=== PATIENT | female | born 1970 | race Caucasian/White ===

== ENCOUNTER 2019-11-05 10:51 | Emergency (ER) | payer MEDICARE ==
[~2019-11-05] VITALS: Ht 165.1 cm; Wt 195.1 kg
[~2019-11-05 10:51] MED LIST: AMBIEN 5 MG TABL5 M1 PO; AZITHROMYCIN 2250 MG PO; CARAFATE 1 GM TA1 G1 PO; CO Q-10100 MG PO; DUONEB 2.5-0.5 M3 ML INH; ENOXAPARIN30 MG/0.3 SQ; FISH OIL 1,001000 M2 PO; GLUCOPHAGE500 MG; GLYBURIDE 2.52.5 MG PO; HYDROXYZINE HCL25 M2 GT; KEFLEX500 MG; KEFLEX500 MG PO; KLOR-CON 1010 MEQ PO; LASIX 40 MG TAB40 M2 PO; LEVAQUIN 500 M500 M2 PO; LEVOTHYROXINE0.05 MG PO; MAGNESIUM250 M1 PO; MEDROLDOSEPACK PO; MOBIC15 MG PO; MULTI FOR HER1 EACH PO; MULTIVITAMINS1 EAC7 PO; NORCO 5-325 TA1 EACH PO; ONDANSETRON HCL4 M2 PO; ONE-A-DAY WOMENS PO; PHENERGAN VC-C120 ML PO; PREDNISONE 10 M10 MG PO; PREDNISONE50 MG PO; PROAIR HFA8.5 GM INH; SIMVASTATIN20 MG PO; SINGULAIR 10 MG10 M1 PO; TOPAMAX100 MG PO; TRAMADOL 50 MG50 MG PO; TUMS PO; VICODIN ES TAB1 EACH; VITAMIN B COMP1 EACH PO; VITAMIN D35000 UNI1 PO; WELLBUTRIN SR150 MG PO; WELLBUTRIN XL150 M1 PO; ZESTRIL5 MG PO; ZOCOR40 MG PO; ZOFRAN ODT4 MG PO; ZOFRAN4 MG PO; ZOLOFT 50 MG TA50 MG PO; ZOLOFT100 MG PO; [UNRECOGNIZED DRUG - OTHER]; [UNRECOGNIZED DRUG - OTHER] PO; [UNRECOGNIZED DRUG - OTHER] PO
[2019-11-05 11:55] LABS: HEMATOCRIT 39.9 % (37.0-47.0); HEMOGLOBIN 12.9 gm/dL (12.0-15.0); MCH 27.1 pg (26.0-34.0); MCHC 32.3 g/dL (28.0-37.0); MCV 84.1 fL (80.0-100.0); MPV 8.4 fl. (7.2-11.1); NUCLEATED RBCS 0 /100WBC; PLATELET COUNT* 280 thou/uL (150-400); RBC 4.75 mil/uL (4.20-5.00); RDW-CV 15.6 % (10.5-14.5); WBC 13.5 thou/uL (4.0-11.0)
[2019-11-05 12:03] LABS: POTASSIUM 4.5 mmol/L (3.5-5.1)
[2019-11-05 12:08] LABS: ALBUMIN 3.7 g/dL (3.4-5.0); TOTAL BILIRUBIN 0.4 mg/dL (<0.1-1.0); TOTAL PROTEIN 7.8 g/dL (6.4-8.2)
[2019-11-05 12:27] LABS: ABSOLUTE BASOPHILS 0.1 thou/uL (0.0-0.2); ABSOLUTE EOSINOPHILS 0.1 thou/uL (0.0-0.7); ABSOLUTE LYMPHOCYTES 1.4 thou/uL (0.8-5.3); ABSOLUTE MONOCYTES 0.4 thou/uL (0.0-1.2); ABSOLUTE NEUTROPHILS 11.5 thou/uL (1.6-8.1)
[2019-11-05 12:28] LABS: PLATELET ESTIMATE ADEQUATE
[2019-11-05 12:31] LABS: URINE BILIRUBIN NEGATIVE (Negative); URINE BLOOD NEGATIVE (Negative); URINE CLARITY CLEAR; URINE COLOR YELLOW; URINE GLUCOSE-RANDOM 3+ (Negative); URINE KETONES NEGATIVE (Negative); URINE LEUKOCYTES-REFLEX NEGATIVE (Negative); URINE NITRITE-REFLEX NEGATIVE (Negative); URINE PROTEIN NEGATIVE (Negative); URINE UROBILINOGEN 0.2 E.U./dl (0.2-1.0)
[2019-11-05] MEDS ORDERED: ZETIA10 MG PO (13:18)
[2019-11-05] MEDS ORDERED: FENOFIBRATE150 MG PO (13:19)
[2019-11-05] MEDS ORDERED: ACTOS15 MG PO (13:19)
[2019-11-05] MEDS ORDERED: TRULICITY1.5 MG/0.5 SUBQ (13:20)
[2019-11-05] MEDS ORDERED: TOPROL XL25 MG PO (13:20)
[2019-11-05] MEDS ORDERED: DILTIAZEM ER180 M2 PO (13:36)
--- NOTE | 2019-11-05 14:41 | EKG ---
[place] [address] ELECTROCARDIOGRAM REPORT Name: ERIK SANCHEZ Room: [facility]#: [id number] Admission: 11/05/19 Attend Phys: Discharge: Date of : 66 Report #: [id number] THIS REPORT FOR: //name// [facility] ED Test Date: 2019-11-05 Test Time: 12:53:45 Pat Name: ERIK SANCHEZ Department: Room: Gender: F [employer]: : 1970 Requested By: Sherrell Purdy Order Number: [id number] MD: Ulisses Brush Measurements Intervals [place] Rate: 91 P: 92 AK: 156 QRS: 89 QRSD: 91 T: 30 QT: 373 QTc: 459 Interpretive Statements Sinus rhythm Low voltage, precordial leads Compared to ECG 06/28/2016 05:06:03 Low QRS voltage now present Electronically Signed On 11-05-2019 14:40:32 [employer] TECHNICAL OFFICER by Ulisses Brush [email or web address] <ELECTRONICALLY SIGNED> By: Ulisses Brush MD, [facility] 11/05/19 1440 [id number] [id number] Ulisses Brush MD, FACC /EPI
[2019-11-05] MEDS ORDERED: OMEPRAZOLE 20 M20 M1 PO (14:52)
[2019-11-05] MEDS ORDERED: FAMOTIDINE 20 M20 MG PO (14:52)
[2019-11-05 15:35] VITALS: BP 134/82
== END 2019-11-05 15:37 | disposition home or self-care (01) ==
LOC: M.ERS 10:51
PROVIDERS: Physician Assistant
DX: R10.13 Epigastric pain (principal); R10.31 Right lower quadrant pain; I10 Essential (primary) hypertension; E78.00 Pure hypercholesterolemia, unspecified; J45.909 Unspecified asthma, uncomplicated; G43.909 Migraine, unspecified, not intractable, without status migrainosus; E11.9 Type 2 diabetes mellitus without complications; E66.9 Obesity, unspecified; Z68.45 Body mass index [BMI] 70 or greater, adult; Z88.0 Allergy status to penicillin; Z88.2 Allergy status to sulfonamides; Z88.8 Allergy status to other drugs, medicaments and biological substances; Z90.49 Acquired absence of other specified parts of digestive tract

== ENCOUNTER 2020-04-19 01:34 | Inpatient (IN) | payer MEDICARE ==
[~2020-04-19] VITALS: Ht 165.1 cm; Wt 197.3 kg
[~2020-04-19 01:34] MED LIST changes: +ACTOS15 MG PO; +DILTIAZEM ER180 M2 PO; +FAMOTIDINE 20 M20 MG PO; +FENOFIBRATE150 MG PO; -LEVOTHYROXINE0.05 MG PO; +OMEPRAZOLE 20 M20 M1 PO; +SYNTHROID100 MC1 PO; +TOPROL XL25 MG PO; +TRULICITY1.5 MG/0.5 SUBQ; +ZETIA10 MG PO
[2020-04-19 01:51] VITALS: BP 158/84
[2020-04-19 02:13] LABS: URINE BLOOD NEGATIVE (Negative); URINE CLARITY CLEAR; URINE COLOR YELLOW; URINE GLUCOSE-RANDOM 3+ (Negative); URINE KETONES 1+ (Negative); URINE LEUKOCYTES-REFLEX NEGATIVE (Negative); URINE NITRITE-REFLEX NEGATIVE (Negative); URINE PROTEIN TRACE (Negative); URINE SPECIFIC GRAVITY 1.025 (1.005-1.030); URINE UROBILINOGEN 0.2 E.U./dl (0.2-1.0)
[2020-04-19 02:18] LABS: URINE BILIRUBIN 1+ (Negative)
[2020-04-19 02:22] LABS: ICTOTEST (BILI CONFIRMATORY) Negative (Negative)
[2020-04-19 03:05] LABS: ABSOLUTE LYMPHOCYTES 0.8 thou/uL (0.8-5.3); ABSOLUTE MONOCYTES 0.6 thou/uL (0.0-1.2); ABSOLUTE NEUTROPHILS 7.2 thou/uL (1.6-8.1); BASOPHILS 0.3 %; EOSINOPHILS 0.4 %; HEMATOCRIT 41.6 % (37.0-47.0); HEMOGLOBIN 13.9 gm/dL (12.0-15.0); LYMPHOCYTES 9.1 %; MCH 28.4 pg (26.0-34.0); MCHC 33.4 g/dL (28.0-37.0); MONOCYTES 6.7 %; MPV 8.8 fl. (7.2-11.1); NUCLEATED RBCS 0 /100WBC; PLATELET COUNT* 247 thou/uL (150-400); POLYS 83.5 %; RBC 4.89 mil/uL (4.20-5.00); RDW-CV 15.7 % (10.5-14.5); WBC 8.6 thou/uL (4.0-11.0)
[2020-04-19 03:19] LABS: CALCIUM 9.4 mg/dL (8.5-10.1); POTASSIUM 3.9 mmol/L (3.5-5.1)
[2020-04-19 03:23] LABS: ALBUMIN 3.5 g/dL (3.4-5.0); MAGNESIUM 1.7 mg/dL (1.8-2.4); TOTAL BILIRUBIN 0.7 mg/dL (<0.1-1.0); TOTAL PROTEIN 7.8 g/dL (6.4-8.2)
--- NOTE | 2020-04-19 06:31 | NUR ---
SPOKE WITH GARTH RE TRANSFER TO [facility] AND THE NEED TO CONTACT PTS FATHER TO GET INFO TO WHETHER FATHER WOULD GO WITH HER TO [facility] TO SIGN IN OR HAVE PAPERS FAXED HERE FOR HIM TO FILL OUT. I INFORMED GARTH THAT I LEFT A MESSAGE FOR FATHER TO CALL BACK. GARTH ASKED ME TO TRY TO CONTACT PTS MOM TO GET THIS INFO. EXPLAINED TO GARTH THAT THE MOTHERS CONTACT INFO IS NOT LISTED ON PTS FACESHEET. GARTH STATED THAT SHE HAD MOTHERS NUMBER BUT SHE DIDNT FEEL COMFORTABLE GIVING ME MOTHERS NUMBER AND THAT I SHOULD ASK PT FOR NUMBER AND PERMISSION TO CONTACT MOTHER. AFTER PHONE CALL I DISCUSSED WITH CHARGE JOSEE THE OPTION TO CALL MOM. D/T THE FACT THAT THE MOTHERS INFORMATION IS NOT LISTED ON FACESHEET WE HAD CONCERNS TO WHETHER WE COULD GET THIS ANSWER FROM MOM.WILL ATTEMPT TO CALL PTS DAD AGAIN.
[2020-04-19 08:29] VITALS: BP 147/79
[2020-04-19 08:45] VITALS: BP 147/74
[2020-04-19 18:15] VITALS: BP 151/93
--- NOTE | 2020-04-19 18:32 | NUR ---
PATIENT ADMITTED FROM ER THIS AM TO ROOM 315. ALERT AND ORIENTED X 4. NO COMPLAINTS OF PAIN OR NAUSEA THIS AM. IVF INFUSING. NPO EXCEPT MEDS, INSULIN GIVEN ORDERED. PATIENT DOWN FOR XRAY WITH GASTROGRAPHIN. PATIENT BACK UP TO FLOOR THIS AFTERNOON DURING TEST AND WAS BACK IN ROOM APPROX 20 MINUTES AND THEN STARTED HAVING LOTS OF LIQUID STOOLING. PATIENT DID HAVE DRY HEAVING, PATIENT GIVEN PRN ZOFRAN AND NO VOMITING NOTED. PATIENT DOWN FOR MORE XRAYS. PAGE OUT TO SURGERY TO UPDATE ON STOOL STATUS, SPOKE WITH DR. GOLDMAN. OK AFTER TEST TO HAVE ICE CHIPS SPARINGLY. ORDER RECEIVED FOR PATIENT TO HAVE HOME TRULICITY SHOT, SENT TO PHARMACY AT THIS TIME. WILL CONTINUE TO MONITOR.
[2020-04-19] MEDS ORDERED: AMARYL2 M1 PO (19:22)
[2020-04-19] MEDS ORDERED: FENOFIBRATE160 MG PO (19:27)
[2020-04-19] MEDS ORDERED: FLONASE 0.05%50 MCG NASAL (19:28)
[2020-04-19] MEDS ORDERED: FLEXERIL PO (19:28)
[2020-04-19] MEDS ORDERED: MELATONIN PO (19:29)
[2020-04-19 21:40] VITALS: BP 121/83
[2020-04-20 05:15] LABS: HEMATOCRIT 38.9 % (37.0-47.0); HEMOGLOBIN 12.8 gm/dL (12.0-15.0); MCH 28.1 pg (26.0-34.0); MCV 85.3 fL (80.0-100.0); MPV 8.9 fl. (7.2-11.1); RBC 4.56 mil/uL (4.20-5.00); RDW-CV 16.1 % (10.5-14.5); WBC 8.7 thou/uL (4.0-11.0)
[2020-04-20 05:40] LABS: ALBUMIN 3.6 g/dL (3.4-5.0); CALCIUM 9.2 mg/dL (8.5-10.1); CREATININE 1.1 mg/dL (0.6-1.3); MAGNESIUM 2.4 mg/dL (1.8-2.4); PHOSPHORUS* 2.8 mg/dL (2.5-4.9); POTASSIUM 3.2 mmol/L (3.5-5.1); TOTAL BILIRUBIN 0.4 mg/dL (<0.1-1.0)
--- NOTE | 2020-04-20 06:27 | NUR ---
PATIENT HAS SLEPT WELL THROUGHOUT MOST OF THE NIGHT. VSS ON RA. NO C/O PAIN. PATIENT IS UP AD-DALE TO THE BATHROOM BUT DOES NEED HELP WIPING AT TIMES. PATIENT HAS HAD A FEW EPISODES OF WATERY DIARRHEA DURING THE NIGHT AFTER SMALL BOWEL SERIES YESTERDAY. PATIENT REMAINS NPO AND HAS HAD ONLY VERY SMALL AMOUNT OF ICE CHIPS THAT WERE ALLOWED PER DR WELL VERY SMALL SIPS OF WATER WITH MEDICATIONS. ABDOMINAL X-RAY SCHEDULED THIS AM. NEW IV INSERTED IN LEFT FOREARM-NS @ 130ML/HR. PATIENT INSTRUCTED TO USE CALL LIGHT WHEN NEEDING ASSISTANCE. HOURLY ROUNDS MADE. WILL CONTINUE WITH PLAN OF CARE AND NURSING TO MONITOR.
[2020-04-20 07:58] VITALS: BP 116/45
[2020-04-20 08:33] VITALS: BP 116/45
--- NOTE | 2020-04-20 10:42 | EKG ---
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
--- NOTE | 2020-04-20 12:15 | NUR ---
Lives with mom. Sister also support system. Uses [employer] as part of ADLs. No other DME or assistance identified at this time. Will review new Rx for affordability with pt prior to dc.
--- NOTE | 2020-04-20 18:01 | NUR ---
DIET ADVANCED TO CLEAR LIQUID PER ORDER. MAY ADVANCE DIET TOLERATED PER ORDER. PT UP AD DALE. DENIES PAIN.
[2020-04-20 20:00] VITALS: BP 114/44; BP 131/91
--- NOTE | 2020-04-21 05:27 | NUR ---
PT SLEPT WELL OVERNIGHT, HAS DENIES PAIN OR NAUSEA. TOLERATING CLEARS WITHOUT DIFFICULTY. LFA IVF INFUSING PER PUMP. PO K GIVEN AND LABS WNL THIS MORNING. TO HAVE ABD XRAY THIS MORNING. HS ACCUCHECK 230, INSULIN GIVEN ORDERED. PT AOX4, ABLE TO USE CALL LITE AND MAKE NEEDS KNOWN. PT HOPEFUL FOR DIET ADVANCEMENT TODAY. SURGERY CONSULTING. UP AD DALE TO BR TO VOID WITHOUT DIFFICULTY.
[2020-04-21 06:34] LABS: ABSOLUTE EOSINOPHILS 0.3 thou/uL (0.0-0.7); ABSOLUTE LYMPHOCYTES 1.9 thou/uL (0.8-5.3); ABSOLUTE MONOCYTES 0.5 thou/uL (0.0-1.2); ABSOLUTE NEUTROPHILS 5.2 thou/uL (1.6-8.1); BASOPHILS 0.3 %; CALCIUM 7.8 mg/dL (8.5-10.1); CREATININE 0.9 mg/dL (0.6-1.3); EOSINOPHILS 3.7 %; HEMATOCRIT 32.9 % (37.0-47.0); LYMPHOCYTES 24.3 %; MCH 28.4 pg (26.0-34.0); MCHC 33.3 g/dL (28.0-37.0); MCV 85.3 fL (80.0-100.0); MONOCYTES 6.2 %; MPV 8.7 fl. (7.2-11.1); NUCLEATED RBCS 0 /100WBC; POLYS 65.5 %; POTASSIUM 3.9 mmol/L (3.5-5.1); RBC 3.86 mil/uL (4.20-5.00); RDW-CV 15.5 % (10.5-14.5); WBC 7.9 thou/uL (4.0-11.0)
[2020-04-21 06:36] LABS: PLATELET COUNT* 228 thou/uL (150-400)
[2020-04-21 08:10] VITALS: BP 140/73
[2020-04-21 09:05] VITALS: BP 140/73
--- NOTE | 2020-04-21 19:03 | NUR ---
PT A&OX4 VSS. PT UP AD DALE, GAIT STEADY. PT ENCOURAGED TO AMBULATE IN GLASER PER DR MIRAMONTES. IV TO LFA PATENT, SALINE LOCKED. FLUIDS DC'D DIRECTED. PT WENT TO RAD THIS AM FOR KUB/SINGLE VIEW CHEST. NO C/O NAUSEA/VOMITING THIS SHIFT. PT DIET ADVANCED TO FULL LIQUIDS. PT TOLERATES WELL. LAST REPORTED BM YESTERDAY. PT RESTING IN RECLINER WITH CALL LIGHT IN REACH AT THIS TIME. WILL CONTINUE TO MONITOR.
[2020-04-21 20:00] VITALS: BP 147/63
[2020-04-22 05:24] LABS: HEMATOCRIT 33.5 % (37.0-47.0); HEMOGLOBIN 11.3 gm/dL (12.0-15.0); MCH 28.6 pg (26.0-34.0); MCHC 33.7 g/dL (28.0-37.0); MCV 84.8 fL (80.0-100.0); MPV 8.3 fl. (7.2-11.1); RBC 3.94 mil/uL (4.20-5.00); RDW-CV 15.6 % (10.5-14.5); WBC 7.5 thou/uL (4.0-11.0)
[2020-04-22 05:31] LABS: CALCIUM 8.3 mg/dL (8.5-10.1); CREATININE 0.8 mg/dL (0.6-1.3); POTASSIUM 3.4 mmol/L (3.5-5.1)
--- NOTE | 2020-04-22 06:31 | NUR ---
PT SLEPT FAIRLY WELL OVERNIGHT, AMBULATING IN HALLS AND ROOM. HAS DENIED PAIN OR N/V, TOLERATING FULL LIQUID DIET. LAC SL. AOX4. CURRENTLY SHELTERING IN GLASER IN WHEELCHAIR WITH MASK PER CARLA WARNING PROTOCOLS. FREQUENT OBSERVATION. HOPEFUL FOR DIET ADVANCEMENT AND DC HOME TODAY.
[2020-04-22 07:42] VITALS: BP 119/46
[2020-04-22 12:51] VITALS: BP 119/46
[2020-04-22] MEDS ORDERED: SENOKOT-S TABL1 EACH PO (12:51)
[2020-04-22 13:34] VITALS: BP 119/46
== END 2020-04-22 13:36 | disposition home or self-care (01) | DRG 389 ==
LOC: M.ERS 01:34 → M.3W 06:09 → M.TBA-ER 06:09 → M.3W 08:42
PROVIDERS: Emergency Medicine; Surgery; ADMIT Internal Medicine; ATTEND Internal Medicine
DX: K56.600 Partial intestinal obstruction, unspecified as to cause (principal); I50.32 Chronic diastolic (congestive) heart failure; Z68.45 Body mass index [BMI] 70 or greater, adult; E87.1 Hypo-osmolality and hyponatremia; E66.01 Morbid (severe) obesity due to excess calories; F32.9 Major depressive disorder, single episode, unspecified; F41.1 Generalized anxiety disorder; E03.9 Hypothyroidism, unspecified; J45.909 Unspecified asthma, uncomplicated; G43.909 Migraine, unspecified, not intractable, without status migrainosus; E78.00 Pure hypercholesterolemia, unspecified; E11.65 Type 2 diabetes mellitus with hyperglycemia; E83.42 Hypomagnesemia; I11.0 Hypertensive heart disease with heart failure; I87.8 Other specified disorders of veins; N80.9 Endometriosis, unspecified; Z90.49 Acquired absence of other specified parts of digestive tract; Z79.84 Long term (current) use of oral hypoglycemic drugs; Z79.899 Other long term (current) drug therapy; Z88.2 Allergy status to sulfonamides; Z88.8 Allergy status to other drugs, medicaments and biological substances; Z91.09 Other allergy status, other than to drugs and biological substances; Z87.891 Personal history of nicotine dependence

== ENCOUNTER 2021-11-21 17:23 | Emergency (ER) | payer MEDICARE ==
[~2021-11-21] VITALS: Ht 165.1 cm; Wt 197.3 kg
[~2021-11-21 17:23] MED LIST changes: +AMARYL2 M1 PO; +FENOFIBRATE160 MG PO; +FLEXERIL PO; +FLONASE 0.05%50 MCG NASAL; +MELATONIN PO; +SENOKOT-S TABL1 EACH PO
[2021-11-21] MEDS ORDERED: SERTRALINE HCL100 MG PO (17:35)
[2021-11-21] MEDS ORDERED: BASAGLAR K100 UNIT/1 SUBQ (17:36)
[2021-11-21] MEDS ORDERED: TRULICITY1.5 MG/0.5 SUBQ (17:37)
[2021-11-21] MEDS ORDERED: [UNRECOGNIZED DRUG - OTHER] SUBQ (17:38)
[2021-11-21] MEDS ORDERED: VENTOLIN HFA 1818 GM INH (17:38)
[2021-11-21] MEDS ORDERED: ALPRAZOLAM XR3 MG PO (17:39)
[2021-11-21] MEDS ORDERED: MEDROLDOSEPACK PO (21:37)
[2021-11-21] MEDS ORDERED: PROMETHAZINE-C473 ML PO (21:37)
[2021-11-21] MEDS ORDERED: AZITHROMYCIN 2250 MG PO (21:37)
[2021-11-21] MEDS ORDERED: ALBUTEROL2.5 MG/31 INH (22:28)
[2021-11-21] MEDS ORDERED: PROAIR HFA8.5 GM INH (22:28)
[2021-11-21 22:45] VITALS: BP 142/77
== END 2021-11-21 22:45 | disposition home or self-care (01) ==
LOC: M.ERS 17:23
DX: U07.1 COVID-19 (principal); J12.82 Pneumonia due to coronavirus disease 2019; F32.9 Major depressive disorder, single episode, unspecified; E66.9 Obesity, unspecified; J45.909 Unspecified asthma, uncomplicated; G43.909 Migraine, unspecified, not intractable, without status migrainosus; E11.9 Type 2 diabetes mellitus without complications; E03.9 Hypothyroidism, unspecified; E78.2 Mixed hyperlipidemia; I11.0 Hypertensive heart disease with heart failure; I50.32 Chronic diastolic (congestive) heart failure; Z79.899 Other long term (current) drug therapy; Z91.048 Other nonmedicinal substance allergy status; Z88.8 Allergy status to other drugs, medicaments and biological substances; Z88.0 Allergy status to penicillin; Z88.2 Allergy status to sulfonamides